=== PATIENT | female | born 1935 | race Caucasian/White ===

== ENCOUNTER 2017-12-08 16:43 | Emergency (ER) | payer MEDICARE, BC ==
--- NOTE | 2017-12-08 16:55 | Emergency Department Record ---
History of Present Illness - General Chief complaint: Fatigue and Weakness Stated complaint: LT ARM PAIN Time Seen by Provider: 12/08/17 16:53 Source: Patient Mode of Arrival: Ambulatory Limitations: No limitations - History of Present Illness Initial comments: 82 yo female presents with an ache in her left arm and axilla since Friday night. The discomfort is constant. It is not worse with palpation, moving or lifting. No shortness of breath, chest pain. The ache is felt a little in the posterior shoulder. No symptoms or worsening with exertion. She states she had a work up for chest pain at [facility] one year ago in September. She reports her tests were negative. No abdominal pain, leg edema, swelling. No left arm numbness or swelling. No weakness of the arm. She denies any history of known CAD or DVT/PE. PCP is Dr Castillo of [facility]. She saw a surgical garment fitter at [facility] as well. Onset/Timin -: Days(s) Location: LUE Severity: Mild Quality: Aching, Dull Consistency: Constant Improves with: None Worsens with: None Associated Symptoms: Denies other symptoms - Juliano Coma Scale Eye Response: (4) Open spontaneously Motor Response: (6) Obeys commands Verbal Response: (5) Oriented [place] Total: 15 - Related Data Home Medications Medication Instructions Recorded Confirmed Last Taken Metoprolol Tartrate 25 mg PO QHS 12/08/17 12/08/17 Unknown Allergies Allergy/AdvReac Type Severity Reaction Status Date / Time No Known Drug Allergies Allergy Verified 12/08/17 16:54 Travel Screening - Travel/Exposure Within Last 30 Days Have you traveled within the last 30 days?: No Review of Systems Constitutional: Denies: Chills, Fever, Malaise, Weakness Eyes: Denies: Eye discharge ENT: Denies: Congestion, Throat pain Respiratory: Denies: Cough, Dyspnea, Hemoptysis, Stridor, Wheezes Cardiovascular: Denies: Arrhythmia, Chest pain, Dyspnea on exertion, Edema, Orthopnea, Palpitations, Syncope Endocrine: Reports: Fatigue Gastrointestinal: Denies: Abdominal pain, Diarrhea, Nausea, Vomiting Genitourinary: Denies: Dysuria, Urgency Musculoskeletal: Reports: Arthralgia, Back pain. Denies: Joint swelling, Myalgia Skin: Denies: Bruising, Change in color, Rash Neurological: Denies: Headache, Numbness, Vertigo, Weakness Psychiatric: Denies: Anxiety Hematological/Lymphatic: Denies: Blood Clots, Easy bleeding, Easy bruising, Swollen glands Past Medical History - SOCIAL HISTORY Smoking Status: Never smoker - RESPIRATORY Hx Respiratory Disorders: No - CARDIOVASCULAR Hx Cardio Disorders: Yes Hx Hypertension: Yes - NEURO Hx Neuro Disorders: No - GI Hx GI Disorders: No - Hx Genitourinary Disorders: No - ENDOCRINE Hx Endocrine Disorders: No - MUSCULOSKELETAL Hx Musculoskeletal Disorders: No Comment:: osteopenia - PSYCH Hx Psych Problems: No - HEMATOLOGY/ONCOLOGY Hx Hematology/Oncology Disorders: No Physical Exam - General General Appearance: Alert, Oriented x3, Cooperative, No acute distress Limitations: No limitations - Head Head exam: Atraumatic, Normal inspection - Eye Eye exam: Normal appearance, PERRL. negative: Conjunctival injection, Scleral icterus - ENT ENT exam: Normal exam, Mucous membranes moist Ear exam: Normal external inspection Nasal Exam: Normal inspection Mouth exam: Normal external inspection - Neck Neck exam: Normal inspection - Respiratory Respiratory exam: Normal lung sounds bilaterally. negative: Accessory muscle use, Chest wall tenderness, Decreased breath sounds, Respiratory distress, Rhonchi, Stridor, Wheezes - Cardiovascular Cardiovascular Exam: Regular rate, Normal rhythm, Normal heart sounds Peripheral Pulses: 2+: Radial (R), Radial (L) - GI/Abdominal GI/Abdominal exam: Soft. negative: Tenderness - Rectal Rectal exam: Deferred - exam: Deferred - Extremities Extremities exam: Normal inspection. negative: Calf tenderness, Pedal edema, Tenderness - Back Back exam: Denies: CVA tenderness (R), CVA tenderness (L) - Neurological Neurological exam: Alert, Oriented X3 - Psychiatric Psychiatric exam: Normal affect, Normal mood - Skin Skin exam: Dry, Intact, Normal color, Warm Course Vital Signs 12/08/17 16:50 Temperature 98.4 F Pulse Rate 93 H Respiratory 24 Rate Blood Pressure 178/96 Pulse Ox 96 - Reevaluation(s) Reevaluation #1: EKG 1652 NSR Rate is 82 Intervals normal [place] [address] Early R wave, LVH criteria No old EKG in the system [facility] were called for records. Both offices are closed. 12/08/17 17:26 12/08/17 17:34 12/17/16 Myocardial perfusion NM Study reviewed. Normal SPECT myocardial perfusion study. 12/08/17 17:43 No prior EKG at [facility]. 12/08/17 18:06 The Troponin is normal/negative after three days of atypical ache in the shoulder The D-dimer is elevated at 1.6 Normal renal function. CTA of the chest ordered. Potassium was ordered for K of 3.1 12/08/17 18:11 12/08/17 18:51 CXR was reviewed. No acute process. 12/08/17 19:28 The CTA of the chest was negative for acute process. 12/08/17 19:38 I discussed the options at this point. The Troponin is normal after nearly 4 days of constant ache that is non exertional without any other angina equivalent symptoms. I offered transfer to a hospital for additional cardiac testing. She declined. She is aware of tests performed, results, and that sometimes atypical symptoms can be the heart. I also explained constant symptoms without other equivalent symptoms is less likely to be cardiac. She declines transfer and with shared decision making she would like to be DC's to follow up with her PCP if the second troponin remains negative. Medical Decision Making - Lab Data Result diagrams: 12/08/17 17:00 12/08/17 17:00 Disposition Disposition: Discharge Clinical Impression: Arm pain, left Disposition: Home, Self-Care Condition: (1) Good Instructions: Arm Pain (ED) Additional Instructions: Call your doctor tomorrow Return if you have any sweating, chest pain, shortness of breath or any new concerns Forms: Patient Portal Access Time of Disposition: 07:30 Quality - Quality Measures Quality Measures: N/A - Blood Pressure Screening Does Patient Have Any of the Following: Active Dx of HTN Blood Pressure Classification: Hypertensive Reading Systolic Measurement: 178 Diastolic Measurement: 96 Screening for High Blood Pressure: Patient Exclusion, Hx of HTN [G9744]
[2017-12-08 17:24] LABS: BASO % 0.4 % (0-6); EOS % 2.5 % (0-6); GRAN % 73.4 % (47-80); HEMATOCRIT 42.4 % (35.0-47.0); HEMOGLOBIN 13.8 gm/dl (11.6-16.0); LYMPH % 17.1 % (16-45); MEAN CELL VOLUME 87.6 fl (81-97); MEAN CORPUSCULAR HEMOGLOBIN 28.5 pg (27-33); MEAN CORPUSCULAR HGB CONC 32.5 g/dl (32-36); MEAN PLATELET VOLUME 10.5 fl (7.4-10.4); MONO % 6.6 % (0-9); PLATELET COUNT 244 K/uL (130-400); RED BLOOD COUNT 4.84 M/uL (3.80-5.40); RED CELL DISTRIBUTION WIDTH 13.6 % (11.5-14.5)
[2017-12-08 17:34] LABS: BLOOD UREA NITROGEN 12 mg/dL (8-23); CREATININE 0.9 mg/dL (0.5-0.9); EST GLOMERULAR FILTRATION RATE > 60 mL/min
[2017-12-08 17:35] LABS: TOTAL PROTEIN 7.2 g/dL (6.6-8.7)
[2017-12-08 17:36] LABS: PARTIAL THROMBOPLASTIN TIME 28.3 SECONDS (24.5-39.1); PROTHROMBIN TIME (PATIENT) 9.9 SECONDS (9.5-12.1)
[2017-12-08 17:37] LABS: GLUCOSE,RANDOM 177 mg/dL (74-109)
[2017-12-08 17:39] LABS: ALT/SGPT 12 U/L (<33); AST/SGOT 16 U/L (10.0-35.0)
[2017-12-08 17:40] LABS: ALB/GLOB RATIO 1.4 (1.1-1.8); ALBUMIN 4.2 g/dL (4.0-5.0); ALKALINE PHOSPHATASE 66 U/L (35-104)
[2017-12-08] MEDS ORDERED: POTASSIUM CHLORIDE 20 MEQ TABLET PO ONE (18:10)
--- NOTE | 2017-12-08 21:32 | Emergency Department Record ---
History of Present Illness - General Chief complaint: Fatigue and Weakness Stated complaint: LT ARM PAIN Time Seen by Provider: 12/08/17 16:53 Source: Patient Mode of Arrival: Ambulatory Limitations: No limitations - History of Present Illness Onset/Timin -: Days(s) Location: LUE Severity: Mild Quality: Aching, Dull Consistency: Constant Improves with: None Worsens with: None Associated Symptoms: Denies other symptoms - Juliano Coma Scale Eye Response: (4) Open spontaneously Motor Response: (6) Obeys commands Verbal Response: (5) Oriented [place] Total: 15 - Related Data Home Medications Medication Instructions Recorded Confirmed Last Taken Metoprolol Tartrate 25 mg PO QHS 12/08/17 12/08/17 Unknown Allergies Allergy/AdvReac Type Severity Reaction Status Date / Time No Known Drug Allergies Allergy Verified 12/08/17 16:54 Travel Screening - Travel/Exposure Within Last 30 Days Have you traveled within the last 30 days?: No Review of Systems Constitutional: Denies: Chills, Fever, Malaise, Weakness Eyes: Denies: Eye discharge ENT: Denies: Congestion, Throat pain Respiratory: Denies: Cough, Dyspnea, Hemoptysis, Stridor, Wheezes Cardiovascular: Denies: Arrhythmia, Chest pain, Dyspnea on exertion, Edema, Orthopnea, Palpitations, Syncope Endocrine: Reports: Fatigue Gastrointestinal: Denies: Abdominal pain, Diarrhea, Nausea, Vomiting Genitourinary: Denies: Dysuria, Urgency Musculoskeletal: Reports: Arthralgia, Back pain. Denies: Joint swelling, Myalgia Skin: Denies: Bruising, Change in color, Rash Neurological: Denies: Headache, Numbness, Vertigo, Weakness Psychiatric: Denies: Anxiety Hematological/Lymphatic: Denies: Blood Clots, Easy bleeding, Easy bruising, Swollen glands Past Medical History - SOCIAL HISTORY Smoking Status: Never smoker - RESPIRATORY Hx Respiratory Disorders: No - CARDIOVASCULAR Hx Cardio Disorders: Yes Hx Hypertension: Yes - NEURO Hx Neuro Disorders: No - GI Hx GI Disorders: No - Hx Genitourinary Disorders: No - ENDOCRINE Hx Endocrine Disorders: No - MUSCULOSKELETAL Hx Musculoskeletal Disorders: No Comment:: osteopenia - PSYCH Hx Psych Problems: No - HEMATOLOGY/ONCOLOGY Hx Hematology/Oncology Disorders: No Family Medical History Any Significant Family History?: No Physical Exam - General Limitations: No limitations Course Vital Signs 12/08/17 12/08/1712/08/18 16:50 17:23 18:26 Temperature 98.4 F Pulse Rate 93 H Pulse Rate [ 74 64 Darkroom Technician ] Respiratory 24 18 18 Rate Blood Pressure 178/96 Blood Pressure 150/77 166/85 [Left Arm] Pulse Ox 96 94 L 96 12/08/17 12/08/17 19:43 20:36 Temperature 98.2 F Pulse Rate Pulse Rate [ 58 L 59 L Darkroom Technician ] Respiratory 16 20 Rate Blood Pressure Blood Pressure 173/92 168/83 [Left Arm] Pulse Ox 97 95 - Reevaluation(s) Reevaluation #1: 12/08/17 21:27 Repeat Troponin has resulted and is negative for myocardial injury. Patient is resting comfortably on re-examination, verbalizes understanding of all instructions and appears stable for discharge at this time. Medical Decision Making - Lab Data Result diagrams: 12/08/17 17:00 12/08/17 17:00 Lab Results 12/08/17 12/08/17 12/08/17 Range/Units 17:00 17:00 17:00 WBC 11.0 (4.2-12.2) K/uL RBC 4.84 (3.80-5.40) M/uL Hgb 13.8 (11.6-16.0) gm/dl Hct 42.4 (35.0-47.0) % MCV 87.6 (81-97) fl MCH 28.5 (27-33) pg MCHC 32.5 (32-36) g/dl RDW 13.6 (11.5-14.5) % Plt Count 244 (130-400) K/uL MPV 10.5 H (7.4-10.4) fl Gran % 73.4 (47-80) % Lymphocytes % 17.1 (16-45) % Monocytes % 6.6 (0-9) % Eosinophils % 2.5 (0-6) % Basophils % 0.4 (0-6) % PT 9.9 (9.5-12.1) SECONDS INR 1.0 APTT 28.3 (24.5-39.1) SECONDS D-Dimer (0-0.59) mg/L FEU Sodium 141 (136-145) mmol/L Potassium 3.1 L (3.4-4.5) mmol/L Chloride 99 (98-107) mmol/L Carbon Dioxide 29.0 (22-29) mmol/L Anion Gap 13.0 (7-16) BUN 12 (8-23) mg/dL Creatinine 0.9 (0.5-0.9) mg/dL Estimated GFR > 60 mL/min Random Glucose 177 H (74-109) mg/dL Calcium 9.5 (8.8-10.2) mg/dL Total Bilirubin 0.20 (0.2-1.0) mg/dL AST 16 (10.0-35.0) U/L ALT 12 (<33) U/L Alkaline Phosphatase 66 (35-104) U/L Troponin T < 0.010 (0-0.010) ng/mL Total Protein 7.2 (6.6-8.7) g/dL Albumin 4.2 (4.0-5.0) g/dL Globulin 3.0 (1.4-4.8) gm/dL Albumin/Globulin Ratio 1.4 (1.1-1.8) 12/08/17 12/08/17 Range/Units 17:00 20:30 WBC (4.2-12.2) K/uL RBC (3.80-5.40) M/uL Hgb (11.6-16.0) gm/dl Hct (35.0-47.0) % MCV (81-97) fl MCH (27-33) pg MCHC (32-36) g/dl RDW (11.5-14.5) % Plt Count (130-400) K/uL MPV (7.4-10.4) fl Gran % (47-80) % Lymphocytes % (16-45) % Monocytes % (0-9) % Eosinophils % (0-6) % Basophils % (0-6) % PT (9.5-12.1) SECONDS INR APTT (24.5-39.1) SECONDS D-Dimer 1.60 H (0-0.59) mg/L FEU Sodium (136-145) mmol/L Potassium (3.4-4.5) mmol/L Chloride (98-107) mmol/L Carbon Dioxide (22-29) mmol/L Anion Gap (7-16) BUN (8-23) mg/dL Creatinine (0.5-0.9) mg/dL Estimated GFR mL/min Random Glucose (74-109) mg/dL Calcium (8.8-10.2) mg/dL Total Bilirubin (0.2-1.0) mg/dL AST (10.0-35.0) U/L ALT (<33) U/L Alkaline Phosphatase (35-104) U/L Troponin T < 0.010 (0-0.010) ng/mL Total Protein (6.6-8.7) g/dL Albumin (4.0-5.0) g/dL Globulin (1.4-4.8) gm/dL Albumin/Globulin Ratio (1.1-1.8) Disposition Disposition: Discharge Clinical Impression: Arm pain, left Disposition: Home, Self-Care Condition: (1) Good Instructions: Arm Pain (ED) Additional Instructions: Call your doctor tomorrow Return if you have any sweating, chest pain, shortness of breath or any new concerns Forms: Patient Portal Access Time of Disposition: 21:27 Quality - Quality Measures Quality Measures: N/A - Blood Pressure Screening Does Patient Have Any of the Following: Active Dx of HTN Blood Pressure Classification: Hypertensive Reading Systolic Measurement: 178 Diastolic Measurement: 96 Screening for High Blood Pressure: Patient Exclusion, Hx of HTN [G9744]
--- NOTE | 2017-12-11 07:48 | RADIOLOGY REPORT ---
EXAM: CHEST, TWO VIEWS HISTORY: DIFFICULTY BREATHING. TECHNIQUE: Frontal and lateral views of the chest were performed. FINDINGS: The heart size is normal. The lung mari are clear. No infiltrate or pleural effusion. There is a healed fracture deformity of the left proximal humerus. IMPRESSION: NO ACUTE PULMONARY DISEASE PROCESS. JOB NUMBER: [id number] MTDD
--- NOTE | 2017-12-11 08:07 | CT ANGIOGRAM REPORT ---
EXAM: CTA OF THE CHEST WITH CONTRAST HISTORY: CHEST PAIN, DIFFICULTY BREATHING. TECHNIQUE: CTA of the chest was performed after intravenous administration of 80 ml of Omnipaque 350 contrast material. Sagittal and coronal MIP images were performed on an independent workstation. FINDINGS: The heart size is normal. No pericardial effusion. No mass or filling defect to suggest pulmonary embolism. No infiltrate or pleural effusion. Findings consistent with healed granulomatous disease. Small sliding type hiatal hernia. The visualized upper abdominal structures are normal. IMPRESSION: 1. NO CTA FINDINGS SUGGESTIVE OF PULMONARY EMBOLISM. 2. SMALL SLIDING TYPE HIATAL HERNIA. JOB NUMBER: [id number] [facility]
== END 2017-12-08 21:50 | disposition home or self-care (01) ==
LOC: ER 16:43
DX: M25.512 Pain in left shoulder (principal); M79.622 Pain in left upper arm; R53.83 Other fatigue; E87.6 Hypokalemia; R53.1 Weakness; R79.89 Other specified abnormal findings of blood chemistry; R11.0 Nausea; I10 Essential (primary) hypertension
CPT/HCPCS: 99284 ×2; 85025; 85730; 85610; 80053; 84484; 85379; 71046; 71275; 93005; 93010; Q9967

== ENCOUNTER 2018-09-11 00:12 | Emergency (ER) | payer MEDICARE, BC ==
[2018-09-11] MEDS ORDERED: DIAZEPAM 5 MG TABLET PO ONE (00:33)
--- NOTE | 2018-09-11 00:35 | Emergency Department Record ---
Anxiety - General Chief Complaint: Anxiety Stated Complaint: ANXIETY Time Seen by Provider: 09/11/18 00:33 Source: Patient Mode of Arrival: Ambulatory Limitations: No limitations - History of Present Illness Initial Comments: 83 yo female presents to ED for evaluation of anxiety, unable to sleep for the past 2 days following recent Whipple surgery 3 weeks ago. Patient was discharged from subacute rehab facility yesterday and is home for the the first time tonight. Patient has not taken anything for her symptoms before coming to the ED, denies fevers, chills, or recent illness. Patient reports that her surgical site is healing well, has an appointment with her surgeon tomorrow morning. Complaint: Anxiety Onset/Timin -: Days(s) Place: Home Previous History of Same: No Severity: Moderate Provoking factors: None known Improves With: Nothing Worsens With: Nothing Associated symptoms: Denies other symptoms - Related Data Home Medications: Home Medications Medication Instructions Recorded Confirmed Last Taken Apixaban [Eliquis] 1 tab PO DAILY 09/11/18 09/11/18 Unknown Digoxin [Digitek] 1 tab PO DAILY 09/11/18 09/11/18 Unknown Lipase/Protease/Amylase [Creon Dr 3 tab PO TID 09/11/18 09/11/18 Unknown 24,000 Units Capsule] Lisinopril [Prinivil] 5 mg PO DAILY 09/11/18 09/11/18 Unknown Allergies/Adverse Reactions: Allergies Allergy/AdvReac Type Severity Reaction Status Date / Time No Known Drug Allergies Allergy Verified 12/08/17 16:54 Travel Screening - Travel/Exposure Within Last 30 Days Have you traveled within the last 30 days?: No Review of Systems Constitutional: Denies: Chills, Fever, Malaise, Night sweats Eyes: Denies: Eye discharge, Eye pain ENT: Denies: Congestion, Ear pain, Epistaxis Respiratory: Denies: Cough, Dyspnea Cardiovascular: Denies: Chest pain, Dyspnea on exertion Endocrine: Denies: Fatigue, Heat or cold intolerance Gastrointestinal: Denies: Abdominal pain, Nausea, Vomiting Genitourinary: Denies: Incontinence, Retention Musculoskeletal: Denies: Arthralgia, Back pain Skin: Denies: Bruising, Change in color Neurological: Denies: Abnormal gait, Confusion, Seizure Psychiatric: Reports: Anxiety. Denies: Suicidal thoughts Hematological/Lymphatic: Denies: Anemia Past Medical History - SOCIAL HISTORY Smoking Status: Never smoker Alcohol Use: None Drug Use: None - RESPIRATORY Hx Respiratory Disorders: No - CARDIOVASCULAR Hx Cardio Disorders: Yes Hx Hypertension: Yes - NEURO Hx Neuro Disorders: No - GI Hx GI Disorders: No - Hx Genitourinary Disorders: No - ENDOCRINE Hx Endocrine Disorders: No - MUSCULOSKELETAL Hx Musculoskeletal Disorders: No Comment:: osteopenia - PSYCH Hx Psych Problems: No - HEMATOLOGY/ONCOLOGY Hx Hematology/Oncology Disorders: Yes Hx Cancer: Yes (Pancreatic) Hx Chemotherapy: No Hx Radiation Therapy: No Family Medical History Any Significant Family History?: No Physical Exam - General General Appearance: Alert, Oriented x3, Cooperative, Anxious Limitations: No limitations - Head Head exam: Atraumatic, Normocephalic, Normal inspection Head exam detail: negative: Abrasion, Contusion, Blunt's sign, General tenderness, Hematoma, Laceration - Eye Eye exam: Normal appearance. negative: Conjunctival injection, Periorbital swelling, Periorbital tenderness, Scleral icterus - ENT Ear exam: negative: Auricular hematoma, Auricular trauma Nasal Exam: negative: Active bleeding, Discharge, Dried blood, Foreign body Mouth exam: negative: Drooling, Laceration, Muffled voice, Tongue elevation - Neck Neck exam: Normal inspection. negative: Meningismus, Tenderness - Respiratory Respiratory exam: Normal lung sounds bilaterally. negative: Rales, Respiratory distress, Rhonchi, Stridor - Cardiovascular Cardiovascular Exam: Regular rate, Normal rhythm, Normal heart sounds - GI/Abdominal GI/Abdominal exam: Soft, Other (Incistion site appears to be healing well on examination). negative: Rebound, Rigid - Rectal Rectal exam: Deferred - exam: Deferred - Extremities Extremities exam: Normal inspection. negative: Pedal edema, Tenderness - Back Back exam: Denies: CVA tenderness (R), CVA tenderness (L) - Neurological Neurological exam: Alert, Normal gait, Oriented X3 - Psychiatric Psychiatric exam: Normal affect, Normal mood - Skin Skin exam: Normal color. negative: Abrasion Type of lesion: negative: abrasion Course Vital Signs 09/11/18 00:20 Temperature 97.8 F Pulse Rate [ 70 Pulse Ox Probe] Respiratory 24 Rate Blood Pressure 147/85 [Left Arm] Pulse Ox 100 - Reevaluation(s) Reevaluation #1: 09/11/18 00:38 Patient is well appearing however anxious appears on examination. Will discharge home with Valium 5 mg to take this evening, daughter will be staying with her tonight, Recommended that patient take Melatonin OTC strating tomorrow evening. Patient appears stable for discharge at this time. Disposition Disposition: Discharge Clinical Impression: Anxiety Disposition: Home, Self-Care Condition: (2) Stable Instructions: Anxiety (ED) Additional Instructions: Return to ED if your symptoms worsen or if you have any concerns. Valium as directed. Follow-up with your family doctor Friday as scheduled. Forms: Patient Portal Access Time of Disposition: 00:34 Quality - Quality Measures Quality Measures: N/A - Blood Pressure Screening Does Patient Have Any of the Following: No Blood Pressure Classification: Pre-Hypertensive BP Reading Systolic Measurement: 147 Diastolic Measurement: 85 Screening for High Blood Pressure: < Pre-Hypertensive BP, F/U Documented > [G8950] Pre-Hypertensive Follow-up Interventions: Referral to alternative/primary care provider.
== END 2018-09-11 01:08 | disposition home or self-care (01) ==
LOC: ER 00:12
DX: F41.9 Anxiety disorder, unspecified (principal); C25.9 Malignant neoplasm of pancreas, unspecified; I10 Essential (primary) hypertension; Z98.890 Other specified postprocedural states
CPT/HCPCS: 99282

== ENCOUNTER 2018-09-15 08:46 | Emergency (ER) | payer MEDICARE, BC ==
[2018-09-15] MEDS ORDERED: 0.9 % SODIUM CHLORIDE 1000ML 1,000 ML IV ONE (09:21)
--- NOTE | 2018-09-15 09:28 | Emergency Department Record ---
History of Present Illness - General Chief Complaint: Abdominal Pain Stated Complaint: ABD PAIN Time Seen by Provider: 09/15/18 09:08 Source: Patient, Family Mode of Arrival: Ambulatory Limitations: No limitations - History of Present Illness Initial Comments: 83 yo female presents with abdominal discomfort for about 3 days. She has not had a bowel movement and feels the need to. She states she had a whipple surgery three weeks ago. The incisions healed well and she denies any pain from the original surgery. No fevers. No vomiting. She feels pressure to have a bowel movement but is unable. MD Complaint: Abdominal pain (Constipation) Onset/Timin -: Days(s) Location: Periumbilical Radiation: Suprapubic Severity: Moderate Severity scale (1-10): 7 Quality: Aching, Cramping, Fullness Consistency: Constant Improves With: Nothing Worsens With: Nothing Context: Recent surgery/procedure - Related Data Hx Age of Menopause: 48 Home Medications Medication Instructions Recorded Confirmed Last Taken Cholecalciferol (Vitamin D3) 1,000 unit PO DAILY 09/15/18 09/15/18 1 Day Ago [Vitamin D3] ~09/14/18 Insulin Aspart [Novolog] 2 unit SQ ASDIR 09/15/18 09/15/18 1 Day Ago ~09/14/18 Previous Rx's Medication Instructions Recorded Polyethylene Glycol 3350 [Miralax] 17 gm PO DAILY #14 packet 09/15/18 Allergies Allergy/AdvReac Type Severity Reaction Status Date / Time No Known Drug Allergies Allergy Verified 09/15/18 09:14 Travel Screening - Travel/Exposure Within Last 30 Days Have you traveled within the last 30 days?: No - Travel/Exposure Within Last Year Have you traveled outside the [place] in the last year?: No - Additonal Travel Details Have you been exposed to anyone with a communicable illness?: No - Travel Symptoms Symptom Screening: None Review of Systems Constitutional: Denies: Chills, Fever, Malaise, Weakness Eyes: Denies: Eye discharge ENT: Denies: Congestion, Throat pain Respiratory: Denies: Cough, Dyspnea, Hemoptysis, Stridor, Wheezes Cardiovascular: Denies: Chest pain, Palpitations, Syncope Endocrine: Denies: Fatigue Gastrointestinal: Reports: Abdominal pain, Constipation, Nausea. Denies: Diarrhea, Vomiting Genitourinary: Denies: Dysuria, Urgency Musculoskeletal: Denies: Arthralgia, Back pain, Joint swelling, Myalgia Skin: Denies: Bruising, Change in color, Rash Neurological: Denies: Headache Psychiatric: Denies: Anxiety Hematological/Lymphatic: Denies: Easy bleeding, Easy bruising Past Medical History - SOCIAL HISTORY Smoking Status: Never smoker Alcohol Use: None Drug Use: None - RESPIRATORY Hx Respiratory Disorders: No - CARDIOVASCULAR Hx Cardio Disorders: Yes Hx Hypertension: Yes - NEURO Hx Neuro Disorders: No - GI Hx GI Disorders: No - Hx Genitourinary Disorders: No - ENDOCRINE Hx Endocrine Disorders: No - MUSCULOSKELETAL Hx Musculoskeletal Disorders: No Comment:: osteopenia - PSYCH Hx Psych Problems: No - HEMATOLOGY/ONCOLOGY Hx Hematology/Oncology Disorders: Yes Hx Cancer: Yes (Pancreatic) Hx Chemotherapy: No Hx Radiation Therapy: No Family Medical History Any Significant Family History?: Yes Physical Exam - General General Appearance: Alert, Oriented x3, Cooperative, No acute distress Limitations: No limitations - Head Head exam: Atraumatic, Normal inspection - Eye Eye exam: Normal appearance. negative: Conjunctival injection - ENT ENT exam: Normal exam, Mucous membranes moist Ear exam: Normal external inspection Nasal Exam: Normal inspection Mouth exam: Normal external inspection - Neck Neck exam: Normal inspection - Respiratory Respiratory exam: Normal lung sounds bilaterally. negative: Respiratory distress - Cardiovascular Cardiovascular Exam: Regular rate, Normal rhythm, Normal heart sounds - GI/Abdominal GI/Abdominal exam: Soft. negative: Distended, Guarding, Rebound, Rigid - Rectal Rectal exam: Fecal impaction, Heme (-) stool, Normal inspection, Normal rectal tone. negative: Black stool, Bloody stool, Decreased rectal tone, Heme (+) stool, Hemorrhoids, Mass, Tenderness - exam: Deferred - Extremities Extremities exam: Normal inspection. negative: Tenderness - Back Back exam: Denies: CVA tenderness (R), CVA tenderness (L) - Neurological Neurological exam: Alert, Oriented X3 - Psychiatric Psychiatric exam: Normal affect, Normal mood. negative: Agitated, Anxious - Skin Skin exam: Dry, Intact, Normal color, Warm Course Vital Signs 09/15/18 09:08 Temperature 98.1 F Pulse Rate 86 Respiratory 20 Rate Blood Pressure 128/69 Pulse Ox 99 - Reevaluation(s) Reevaluation #1: 09/15/18 10:29 XR with moderate stools. Few dilated SB loops. Non specific without obstruction. 09/15/18 10:30 CBC with mild anemia at 9.9 CMP is normal Given the firm hard stool on rectal I recommend an enema. 09/15/18 10:47 Prior Hgb was 9.0 09/15/18 11:35 After the enema the patient did have a large bowel movement with good relief She will be DC home on Miralax as well. Medical Decision Making - Lab Data Result diagrams: 09/15/18 09:27 09/15/18 09:27 Disposition Disposition: Discharge Clinical Impression: Constipation Disposition: Home, Self-Care Condition: (1) Good Instructions: Constipation (ED) Additional Instructions: Call your doctor for the next available follow up appointment Review this ER visit and the tests performed with your family doctor Return to the ER for a recheck if worse, any new concerns or questions Take the prescriptions provided as directed Prescriptions: Polyethylene Glycol 3350 [Miralax] 17 gm PO DAILY #14 packet Forms: Patient Portal Access Time of Disposition: 11:35 Quality - Quality Measures Quality Measures: N/A - Blood Pressure Screening Does Patient Have Any of the Following: Active Dx of HTN Blood Pressure Classification: Pre-Hypertensive BP Reading Systolic Measurement: 128 Diastolic Measurement: 69 Screening for High Blood Pressure: Patient Exclusion, Hx of HTN [G9744]
[2018-09-15 09:44] LABS: ABSOLUTE NEUTROPHIL COUNT 7.16; BASO % 0.8 % (0-6); EOS % 2.6 % (0-6); GRAN % 77.3 % (47-80); HEMATOCRIT 32.7 % (35.0-47.0); HEMOGLOBIN 9.9 gm/dl (11.6-16.0); LYMPH % 11.5 % (16-45); MEAN CELL VOLUME 91.3 fl (81-97); MEAN CORPUSCULAR HGB CONC 30.3 g/dl (32-36); MEAN PLATELET VOLUME 10.7 fl (7.4-10.4); MONO % 7.8 % (0-9); PLATELET COUNT 258 K/uL (130-400); RED BLOOD COUNT 3.58 M/uL (3.80-5.40); RED CELL DISTRIBUTION WIDTH 14.1 % (11.5-14.5); WHITE BLOOD COUNT W/O DIFF 9.3 K/uL (4.2-12.2)
[2018-09-15 09:45] LABS: MEAN CORPUSCULAR HEMOGLOBIN 27.6 pg (27-33)
[2018-09-15 10:05] LABS: BLOOD UREA NITROGEN 11 mg/dL (8-23); CREATININE 0.6 mg/dL (0.5-0.9); EST GLOMERULAR FILTRATION RATE > 60 mL/min
[2018-09-15 10:06] LABS: INR 1.2; LIPASE 6 U/L (13-60); PARTIAL THROMBOPLASTIN TIME 27.8 SECONDS (24.5-39.1); PROTHROMBIN TIME (PATIENT) 11.7 SECONDS (9.5-12.1); TOTAL PROTEIN 6.3 g/dL (6.6-8.7)
[2018-09-15 10:08] LABS: GLUCOSE,RANDOM 140 mg/dL (74-109)
[2018-09-15 10:10] LABS: ALB/GLOB RATIO 1.3 (1.1-1.8); ALBUMIN 3.6 g/dL (4.0-5.0); ALT/SGPT 16 U/L (<33); AST/SGOT 20 U/L (10.0-35.0)
[2018-09-15 10:11] LABS: ALKALINE PHOSPHATASE 80 U/L (35-104)
--- NOTE | 2018-09-16 09:34 | RADIOLOGY REPORT ---
EXAM: ABDOMEN, ONE VIEW HISTORY: NO BOWEL MOVEMENT FOR THREE DAYS. THREE WEEKS STATUS POST WHIPPLE PROCEDURE FOR PANCREATIC CARCINOMA. TECHNIQUE: A single AP supine view of the abdomen was obtained. Comparison: None. FINDINGS: A surgical chain suture and surgical clips are noted in the upper abdomen consistent with stated history of recent Whipple procedure. Gas and stool are noted throughout a nondilated colon to the level of the rectum. Stool volume within the rectum is moderate. A few gas distended, nondilated to borderline dilated small bowel loops are scattered within the abdomen. These are nonspecific. No mass or organomegaly. No suspicious calcification. There are degenerative changes scattered within the visualized spine associated with mild dextroconvex scoliosis of the lumbar spine centered at the L4 level. Mild to moderate degenerative changes of the hips. IMPRESSION: 1. THERE IS A MODERATE AMOUNT STOOL WITHIN THE LEFT COLON AND RECTUM. 2. SEVERAL GAS DISTENDED, NONDILATED TO BORDERLINE DILATED SMALL BOWEL LOOPS. THESE ARE NONSPECIFIC. 3. POST SURGICAL CHANGES IN THE UPPER ABDOMEN. JOB NUMBER: [id number] [facility]
== END 2018-09-15 11:57 | disposition home or self-care (01) ==
LOC: ER 08:46
DX: K59.00 Constipation, unspecified (principal); R10.33 Periumbilical pain; I10 Essential (primary) hypertension; C25.9 Malignant neoplasm of pancreas, unspecified; Z98.890 Other specified postprocedural states
CPT/HCPCS: 74018; 80053; 83690; 85025; 85610; 85730; 99284; J7030

== ENCOUNTER 2018-11-21 18:54 | Emergency (ER) | payer MEDICARE, BC ==
[2018-11-21 19:21] LABS: URINE APPEARANCE CLOUDY; URINE BILIRUBIN SMALL (NEGATIVE); URINE BLOOD LARGE (NEGATIVE); URINE COLOR YELLOW; URINE GLUCOSE (UA) NEGATIVE (NEGATIVE); URINE KETONE NEGATIVE (NEGATIVE); URINE LEUKOCYTE ESTERASE LARGE (NEGATIVE); URINE NITRITE NEGATIVE (NEGATIVE)
[2018-11-21] MEDS ORDERED: CEPHALEXIN 500 MG CAPSULE PO STA (19:29)
[2018-11-21 19:30] LABS: URINE BACTERIA 2+; URINE SQUAMOUS EPITHELIAL CELL 0 - 2 /hpf
--- NOTE | 2018-11-21 19:30 | Emergency Department Record ---
History of Present Illness - General Chief complaint: Female Urogenital Problem Stated complaint: UTI Time Seen by Provider: 11/21/18 18:56 Source: Patient Mode of Arrival: Ambulatory Limitations: No limitations - History of Present Illness Initial comments: 83 yo female presents to ED for evaluation of burning with urination and urinary frequency that began last night. Patient reports that she has been taking chemo for pancreatic cancer for the pasty 6 months following partial resection of the pancreas, reports that she is susceptible to infection. Patient denies fevers, chills, flank pain, nausea, or vomiting symptoms. MD Complaint: Dysuria Onset/Timin -: Days(s) Location: Suprapubic Severity: Mild Severity scale (1-10): 3 Quality: Burning Consistency: Intermittent Improves with: None Worsens with: Urination Patient : No Associated Symptoms: Dysuria - Related Data Sexually active: No Home Medications Medication Instructions Recorded Confirmed Last Taken Capecitabine [Xeloda] 150 mg PO ASDIR 11/21/18 11/21/18 11/21/18 Gemcitabine HCl 100 mg IV ASDIR 11/21/18 11/21/18 11/18/18 Previous Rx's Medication Instructions Recorded Polyethylene Glycol 3350 [Miralax] 17 gm PO DAILY #14 packet 09/15/18 Nitrofurantoin [place] [Macrobid] 100 mg PO BID #13 capsule 11/21/18 Phenazopyridine HCl [Pyridium] 200 mg PO TID #5 tab 11/21/18 Allergies Allergy/AdvReac Type Severity Reaction Status Date / Time cephalexin [From Keflex] Allergy PT UNSURE Verified 11/21/18 19:33 OF REACTION Travel Screening - Travel/Exposure Within Last 30 Days Have you traveled within the last 30 days?: No - Travel Symptoms Symptom Screening: None Review of Systems Constitutional: Denies: Chills, Fever, Malaise, Night sweats Eyes: Denies: Eye discharge, Eye pain ENT: Denies: Congestion, Ear pain, Epistaxis Respiratory: Denies: Cough, Dyspnea Cardiovascular: Denies: Chest pain, Dyspnea on exertion Endocrine: Denies: Fatigue, Heat or cold intolerance Gastrointestinal: Denies: Abdominal pain, Nausea, Vomiting Genitourinary: Reports: Dysuria. Denies: Incontinence, Retention Musculoskeletal: Denies: Arthralgia, Back pain Skin: Denies: Bruising, Change in color Neurological: Denies: Abnormal gait, Confusion, Headache, Seizure Psychiatric: Denies: Anxiety Hematological/Lymphatic: Denies: Anemia, Blood Clots Past Medical History - SOCIAL HISTORY Smoking Status: Never smoker - RESPIRATORY Hx Respiratory Disorders: No - CARDIOVASCULAR Hx Cardio Disorders: Yes Hx Hypertension: Yes Hx Irregular Heartbeat: Yes (paroxsymal afib) - NEURO Hx Neuro Disorders: No - GI Hx GI Disorders: No - Hx Genitourinary Disorders: No - ENDOCRINE Hx Endocrine Disorders: No - MUSCULOSKELETAL Hx Musculoskeletal Disorders: No Comment:: osteopenia - PSYCH Hx Psych Problems: No - HEMATOLOGY/ONCOLOGY Hx Hematology/Oncology Disorders: Yes Hx Cancer: Yes (Pancreatic) Hx Chemotherapy: No Hx Radiation Therapy: No Family Medical History Any Significant Family History?: No Physical Exam - General General Appearance: Alert, Oriented x3, Cooperative, Mild distress Limitations: No limitations - Head Head exam: Atraumatic, Normocephalic, Normal inspection Head exam detail: negative: Abrasion, Contusion, Blunt's sign, General tenderness, Hematoma, Laceration - Eye Eye exam: Normal appearance. negative: Conjunctival injection, Periorbital swelling, Periorbital tenderness, Scleral icterus - ENT Ear exam: negative: Auricular hematoma, Auricular trauma Nasal Exam: negative: Active bleeding, Discharge, Dried blood, Foreign body Mouth exam: negative: Drooling, Laceration, Muffled voice, Tongue elevation - Neck Neck exam: Normal inspection. negative: Meningismus, Tenderness - Respiratory Respiratory exam: Normal lung sounds bilaterally. negative: Respiratory distress, Rhonchi, Stridor - Cardiovascular Cardiovascular Exam: Regular rate, Normal rhythm, Normal heart sounds - GI/Abdominal GI/Abdominal exam: Soft. negative: Rebound, Rigid, Tenderness - Rectal Rectal exam: Deferred - exam: Deferred - Extremities Extremities exam: Normal inspection. negative: Pedal edema, Tenderness - Back Back exam: Denies: CVA tenderness (R), CVA tenderness (L) - Neurological Neurological exam: Alert, Normal gait, Oriented X3 - Psychiatric Psychiatric exam: Normal affect, Normal mood - Skin Skin exam: Normal color. negative: Abrasion Type of lesion: negative: abrasion Course Vital Signs 11/21/18 19:07 Temperature 98.1 F Pulse Rate [ 83 Left] Respiratory 16 Rate Blood Pressure 114/71 [Left] Pulse Ox 100 - Reevaluation(s) Reevaluation #1: 11/21/18 19:38 UA was reviewed: 3-6 RBCs TNTC WBCs 2+ Bacteria Patient was updated on her UA result, will treat with Macrobid and Pyridium as directed. Patient appears stable for discharge at this time. Medical Decision Making - Lab Data Lab Results 11/21/18 Range/Units 19:05 Urine Color Yellow Urine Appearance Cloudy Urine pH 6.0 (5.0-8.0) Ur Specific [place] 1.025 (1.002-1.030) Urine Protein 100 mg/dl H (NEGATIVE) Urine Glucose (UA) Negative (NEGATIVE) Urine Ketones Negative (NEGATIVE) Urine Blood Large H (NEGATIVE) Urine Nitrite Negative (NEGATIVE) Urine Bilirubin Small H (NEGATIVE) Urine Urobilinogen 1.0 (0.20 - 1.00) E.U./dL Ur Leukocyte Esterase Large H (NEGATIVE) Disposition Disposition: Discharge Clinical Impression: UTI (urinary tract infection) Qualifiers: Urinary tract infection type: acute cystitis Hematuria presence: with hematuria Qualified Code(s): N30.01 - Acute cystitis with hematuria Disposition: Home, Self-Care Condition: (2) Stable Instructions: Urinary Tract Infection in Women (ED) Additional Instructions: Return to ED if your symptoms worsen or if you have any concerns. Macrobid, pyridium as directed. Follow-up with your family doctor in 3-5 days as directed. Prescriptions: Nitrofurantoin [place] [Macrobid] 100 mg PO BID #13 capsule Phenazopyridine HCl [Pyridium] 200 mg PO TID #5 tab Forms: Patient Portal Access Time of Disposition: 19:29 Quality - Quality Measures Quality Measures: N/A - Blood Pressure Screening Does Patient Have Any of the Following: No Blood Pressure Classification: Normal BP Reading Systolic Measurement: 114 Diastolic Measurement: 71 Screening for High Blood Pressure: < Normal BP, F/U Not Required > [G8783]
[2018-11-21] MEDS ORDERED: NITROFURANTOIN MONO 100 MG CAPSULE PO ONE (19:32)
[2018-11-21] MEDS ORDERED: PHENAZOPYRIDINE HCL 95 MG TABLET PO ONE (19:33)
== END 2018-11-21 19:40 | disposition home or self-care (01) ==
LOC: ER 18:54
DX: N30.01 Acute cystitis with hematuria (principal); I10 Essential (primary) hypertension; C25.9 Malignant neoplasm of pancreas, unspecified
CPT/HCPCS: 81001; 99283

== ENCOUNTER 2019-03-05 18:48 | Emergency (ER) | payer MEDICARE, BC ==
--- NOTE | 2019-03-05 19:12 | Emergency Department Record ---
History of Present Illness - General Chief complaint: Lower Extremity Pain Stated complaint: PAIN IN BOTH FEET Time Seen by Provider: 03/05/19 19:01 Source: Patient Mode of Arrival: Ambulatory Limitations: No limitations - History of Present Illness Initial comments: The patient is here due to bilateral foot pain for 3 days. The pain seems to be worse on the L heel than the R heel. The heels have been peeling for a week also. Today she also is having R hand pain over the palm. The patient denies any fever, chills, AP, cough, or swelling. She does have pancreatic CA and has had 5-6 rounds of chemo and her Cancer doctor is at [facility] [place]. Her last round of chemo was given 2 days ago and now she has a week off. MD Complaint: Extremity pain Onset/Timin -: Days(s) Improves with: Nothing Worsens with: Walking, Weight bearing - Related Data Previous Rx's Medication Instructions Recorded Polyethylene Glycol 3350 [Miralax] 17 gm PO DAILY #14 packet 09/15/18 Allergies Allergy/AdvReac Type Severity Reaction Status Date / Time cephalexin [From Keflex] Allergy PT UNSURE Verified 11/21/18 19:33 OF REACTION Travel Screening - Travel/Exposure Within Last 30 Days Have you traveled within the last 30 days?: No - Travel/Exposure Within Last Year Have you traveled outside the [place] in the last year?: No - Additonal Travel Details Have you been exposed to anyone with a communicable illness?: No - Travel Symptoms Symptom Screening: None Review of Systems Constitutional: Denies: Chills, Fever Eyes: Denies: Eye discharge ENT: Denies: Congestion Respiratory: Denies: Cough, Dyspnea Cardiovascular: Denies: Arrhythmia Endocrine: Reports: Fatigue Gastrointestinal: Denies: Nausea Genitourinary: Denies: Dysuria Musculoskeletal: Denies: Arthralgia Skin: Denies: Bruising Past Medical History - SOCIAL HISTORY Smoking Status: Never smoker Alcohol Use: None Drug Use: None - RESPIRATORY Hx Respiratory Disorders: No - CARDIOVASCULAR Hx Cardio Disorders: Yes Hx Hypertension: Yes Hx Irregular Heartbeat: Yes (paroxsymal afib) - NEURO Hx Neuro Disorders: No - GI Hx GI Disorders: No - Hx Genitourinary Disorders: No - ENDOCRINE Hx Endocrine Disorders: No - MUSCULOSKELETAL Hx Musculoskeletal Disorders: No Comment:: osteopenia - PSYCH Hx Psych Problems: No - HEMATOLOGY/ONCOLOGY Hx Hematology/Oncology Disorders: Yes Hx Cancer: Yes (Pancreatic) Hx Chemotherapy: Yes Hx Radiation Therapy: No Family Medical History Any Significant Family History?: No Physical Exam - General General Appearance: Alert, Oriented x3, Cooperative, No acute distress - Head Head exam: Atraumatic, Normocephalic - Eye Eye exam: Normal appearance, PERRL - ENT Throat exam: Normal inspection. negative: Tonsillar erythema, Tonsillar exudate - Neck Neck exam: Normal inspection, Full ROM. negative: Tenderness - Respiratory Respiratory exam: Normal lung sounds bilaterally. negative: Respiratory distres s - Cardiovascular Cardiovascular Exam: Regular rate, Normal rhythm, Normal heart sounds - GI/Abdominal GI/Abdominal exam: Soft, Normal bowel sounds. negative: Tenderness - Extremities Extremities exam: Full ROM, Normal capillary refill, Tenderness (There is bilateral calcaneal tenderness L>R. The L calcaneus is mildly erythematous but there is no swelling or abrasions. There is also no warmth to the bilateral heels and hands where the rash is. It clearly is not cellulitic but appears to be a medication rxn.), Other (The DP pulses are 2+ and equal bilaterally. ). negative: Normal inspection, Joint swelling - Neurological Neurological exam: Alert. negative: Motor sensory deficit Course Vital Signs 03/05/19 18:59 Temperature 97.5 F L Pulse Rate [ 73 Pulse Ox Probe] Respiratory 16 Rate Blood Pressure 162/98 [Left Arm] Pulse Ox 100 - Reevaluation(s) Reevaluation #1: The patient is doing a lot better at this time. Her foot and heel pain have resolved with the Of[employer] and she states she is feeling "great". 03/05/19 20:13 Reevaluation #2: The patient continues to do well. I did discuss the issues with the [facility] Cancer fellow mission systems engineer. He states that this issue with the feet and hand with pain and peeling of the skin is a known side effect of her medicine. She was given a steroid emmolient to treat this and she will use it as directed and will contact them on Friday if not better. 03/05/19 20:39 Medical Decision Making - Data Complexity MDM Data: Labs Ordered and/or Reviewed - Lab Data Result diagrams: 03/05/19 19:25 03/05/19 19:25 Disposition Disposition: Discharge Clinical Impression: Medication side effects Disposition: Home, Self-Care Condition: (2) Stable Instructions: Contact Dermatitis (ED) Additional Instructions: Please use Tylenol for pain and use your home Emmolient as directed. Please call the Cancer specialist on Friday if not better and return to the ER for any worsening issues. Forms: Patient Portal Access Time of Disposition: 20:42 Quality - Quality Measures Quality Measures: N/A - Blood Pressure Screening View Details: Yes Does Patient Have Any of the Following: Active Dx of HTN Blood Pressure Classification: Hypertensive Reading Systolic Measurement: 162 Diastolic Measurement: 98 Screening for High Blood Pressure: Patient Exclusion, Hx of HTN [G9744]
[2019-03-05 19:34] LABS: ABSOLUTE NEUTROPHIL COUNT 6.33; EOS % 1.3 % (0-6); HEMOGLOBIN 10.3 gm/dl (11.6-16.0); LYMPH % 7.7 % (16-45); MEAN CELL VOLUME 91.4 fl (81-97); MEAN CORPUSCULAR HEMOGLOBIN 28.5 pg (27-33); MEAN CORPUSCULAR HGB CONC 31.2 g/dl (32-36); MEAN PLATELET VOLUME 11.4 fl (7.4-10.4); MONO % 0.6 % (0-9); PLATELET COUNT 142 K/uL (130-400); RED BLOOD COUNT 3.61 M/uL (3.80-5.40); RED CELL DISTRIBUTION WIDTH 25.6 % (11.5-14.5)
[2019-03-05 19:46] LABS: INR 1.2; PARTIAL THROMBOPLASTIN TIME 26.4 SECONDS (24.5-39.1); PROTHROMBIN TIME (PATIENT) 12.1 SECONDS (9.5-12.1)
[2019-03-05 19:47] LABS: BLOOD UREA NITROGEN 18 mg/dL (8-23); CREATININE 0.5 mg/dL (0.5-0.9); EST GLOMERULAR FILTRATION RATE > 60 mL/min
[2019-03-05 19:50] LABS: GLUCOSE,RANDOM 112 mg/dL (74-109)
[2019-03-05] MEDS: ACETAMINOPHEN 1,000 MG/100 ML BTL IVPB ONE ×2 (19:50→19:52)
[2019-03-05 19:52] LABS: ALB/GLOB RATIO 1.5 (1.1-1.8); ALBUMIN 4.2 g/dL (4.0-5.0); ALKALINE PHOSPHATASE 70 U/L (35-104); ALT/SGPT 21 U/L (<33); AST/SGOT 33 U/L (10.0-35.0)
[2019-03-05 19:53] LABS: C-REACTIVE PROTEIN 0.66 mg/dL (<0.5); DIGOXIN 0.7 ng/mL (0.8-2.0)
[2019-03-05 19:54] LABS: ANISOCYTOSIS 3+
[2019-03-05 19:55] LABS: OVALOCYTES 1+
== END 2019-03-05 20:48 | disposition home or self-care (01) ==
LOC: ER 18:48
DX: L24.4 Irritant contact dermatitis due to drugs in contact with skin (principal); T45.1X5A Adverse effect of antineoplastic and immunosuppressive drugs, initial encounter; M79.672 Pain in left foot; M79.671 Pain in right foot; I10 Essential (primary) hypertension; C25.9 Malignant neoplasm of pancreas, unspecified
CPT/HCPCS: 80053; 80162; 85027; 85610; 85730; 86140; 96365; 99284

== ENCOUNTER 2019-04-03 20:33 | Emergency (ER) | payer MEDICARE, BC ==
--- NOTE | 2019-04-03 21:06 | Emergency Department Record ---
History of Present Illness - General Chief complaint: Hemorrhoids Stated complaint: RECTAL BLOCKAGE Time Seen by Provider: 04/03/19 20:50 Source: Patient Mode of Arrival: Ambulatory Limitations: No limitations - History of Present Illness Initial comments: 84 yo female presents to ED for evaluation of constipation symptoms for the past 4-5 days. Patient reports history of pancreatic cancer s/p whipple procedure, reports significant weight loss and decreased appetite resulting from her surgery. Patient reports that she eats very little, started taking Miralax yesterday for her symptoms. Patient denies abdominal pain or cramping symptoms, denies nausea/vomiting symptoms. Patient is concerned about pain with attempted bowel movement, denies rectal bleeding symptoms. MD complaint: Other Onset/Timin -: Days(s) Radiation: None, Other Severity scale (1-10): 7 Improves with: Rest Worsens with: Movement Associated Symptoms: Denies other symptoms Treatments Prior to Arrival: None - Related Data Previous Rx's Medication Instructions Recorded Polyethylene Glycol 3350 [Miralax] 17 gm PO DAILY #14 packet 09/15/18 Allergies Allergy/AdvReac Type Severity Reaction Status Date / Time cephalexin [From Keflex] Allergy PT UNSURE Verified 11/21/18 19:33 OF REACTION Travel Screening - Travel/Exposure Within Last 30 Days Have you traveled within the last 30 days?: No - Travel/Exposure Within Last Year Have you traveled outside the [place] in the last year?: No - Additonal Travel Details Have you been exposed to anyone with a communicable illness?: No Review of Systems Constitutional: Denies: Chills, Fever, Malaise, Night sweats Eyes: Denies: Eye discharge, Eye pain ENT: Denies: Congestion, Ear pain, Epistaxis Respiratory: Denies: Cough, Dyspnea Cardiovascular: Denies: Chest pain, Dyspnea on exertion Endocrine: Denies: Fatigue, Heat or cold intolerance Gastrointestinal: Reports: Constipation. Denies: Abdominal pain, Nausea, Vomiting Genitourinary: Denies: Incontinence, Retention Musculoskeletal: Denies: Arthralgia, Back pain Skin: Denies: Bruising, Change in color Neurological: Denies: Abnormal gait, Confusion, Headache, Seizure Psychiatric: Denies: Anxiety Hematological/Lymphatic: Reports: Easy bleeding, Easy bruising. Denies: Anemia, Blood Clots Past Medical History - SOCIAL HISTORY Smoking Status: Never smoker Alcohol Use: None Drug Use: None - RESPIRATORY Hx Respiratory Disorders: No - CARDIOVASCULAR Hx Cardio Disorders: Yes Hx Hypertension: Yes Hx Irregular Heartbeat: Yes (paroxsymal afib) - NEURO Hx Neuro Disorders: No - GI Hx GI Disorders: No - Hx Genitourinary Disorders: No - ENDOCRINE Hx Endocrine Disorders: No - MUSCULOSKELETAL Hx Musculoskeletal Disorders: No Comment:: osteopenia - PSYCH Hx Psych Problems: No - HEMATOLOGY/ONCOLOGY Hx Hematology/Oncology Disorders: Yes Hx Cancer: Yes (Pancreatic) Hx Chemotherapy: Yes Hx Radiation Therapy: No Family Medical History Any Significant Family History?: No Physical Exam - General General Appearance: Alert, Oriented x3, Cooperative, No acute distress, Other (Cachetic appearing on examination) Limitations: No limitations - Head Head exam: Atraumatic, Normocephalic, Normal inspection Head exam detail: negative: Abrasion, Contusion, Blunt's sign, General tenderness, Hematoma, Laceration - Eye Eye exam: Normal appearance. negative: Conjunctival injection, Periorbital swelling, Periorbital tenderness, Scleral icterus - ENT Ear exam: negative: Auricular hematoma, Auricular trauma Nasal Exam: negative: Active bleeding, Discharge, Dried blood, Foreign body Mouth exam: negative: Drooling, Laceration, Muffled voice, Tongue elevation - Neck Neck exam: Normal inspection. negative: Meningismus, Tenderness - Respiratory Respiratory exam: Normal lung sounds bilaterally. negative: Rales, Respiratory distress, Rhonchi, Stridor - Cardiovascular Cardiovascular Exam: Regular rate, Normal rhythm, Normal heart sounds - GI/Abdominal GI/Abdominal exam: Soft, Other (Benign abdominal examination). negative: Rebound, Rigid, Tenderness - Rectal Rectal exam: Hemorrhoids ((1) chronic appearing, non-thrombosed hemmorrhoid is present on examination), Normal inspection. negative: Tenderness - exam: Deferred - Extremities Extremities exam: Normal inspection. negative: Pedal edema, Tenderness - Back Back exam: Denies: CVA tenderness (R), CVA tenderness (L) - Neurological Neurological exam: Alert, Normal gait, Oriented X3 - Psychiatric Psychiatric exam: Normal affect, Normal mood - Skin Skin exam: Normal color. negative: Abrasion Type of lesion: negative: abrasion Course Vital Signs 04/03/19 20:48 Temperature 97.6 F Pulse Rate 80 Respiratory 20 Rate Blood Pressure 134/80 Pulse Ox 98 - Reevaluation(s) Reevaluation #1: 04/03/19 21:23 Patient was seen and examined. Abdominal examination is benign without pain symptoms No evidence for SBO or large bowel obstruction Patient reports small, hard stools but also reports that she is only eating small amounts. Discussed enema here in the ED vs. continuing Miralax daily as discussed as the patient has no abdominal pain/cramping symptoms Patient is declining enema at this time and will continue Miralax as discussed. Patient appears stable for discharge at this time. Disposition Disposition: Discharge Clinical Impression: Constipated Qualifiers: Constipation type: chronic idiopathic constipation Qualified Code(s): K59.04 - Chronic idiopathic constipation Disposition: Home, Self-Care Condition: (2) Stable Instructions: Constipation (ED) Additional Instructions: Return to ED if your symptoms worsen or if you have any concerns. Continue Miralax as directed. Follow-up with your family doctor in 3-5 days as directed. Forms: Patient Portal Access Time of Disposition: 21:06 Quality - Quality Measures Quality Measures: N/A - Blood Pressure Screening Does Patient Have Any of the Following: No Blood Pressure Classification: Pre-Hypertensive BP Reading Systolic Measurement: 134 Diastolic Measurement: 80 Screening for High Blood Pressure: < Pre-Hypertensive BP, F/U Documented > [G8950] Pre-Hypertensive Follow-up Interventions: Referral to alternative/primary care provider.
== END 2019-04-03 21:17 | disposition home or self-care (01) ==
LOC: ER 20:33
DX: K59.04 Chronic idiopathic constipation (principal); I10 Essential (primary) hypertension; Z85.07 Personal history of malignant neoplasm of pancreas
CPT/HCPCS: 99283